=== PATIENT | male | born 1970 | race African-American/Black ===

== ENCOUNTER 2017-08-25 06:54 | Day surgery (SDC) | payer OTHER ==
[2017-08-24 08:48] VITALS: BMI 34.7
[~2017-08-25 06:54] MED LIST: Cyclopentolate 1% Opth Drop 2 ML BOT FS SCH; EPINEPHrine 0.3 MG, Dextrose 50% 3 ML in Ophthalmic Irrigation Solution 500 ML FS SCH; Phenylephrine HCl 2.5% Ophth Soln 5 ML BOT FS SCH
[2017-08-25] MEDS ORDERED: Cyclopentolate 1% Opth Drop 2 ML BOT ONE (07:27)
[2017-08-25] MEDS ORDERED: Phenylephrine HCl 2.5% Ophth Soln 5 ML BOT ONE (07:27)
[2017-08-25] MEDS ORDERED: Promethazine HCl 25 MG/ML VIAL ONE (09:23)
[2017-08-25] MEDS ORDERED: PHENYLEPHRINE-NS 100 MCG/ML 10 ML SYRINGE ONE ×2 (09:23→09:58)
[2017-08-25] MEDS ORDERED: Ondansetron HCl/PF 4 MG/2 ML Vial ONE (09:23)
[2017-08-25] MEDS ORDERED: Diprivan 20 ML ONE (09:23)
[2017-08-25] MEDS ORDERED: Phenylephrine 10 MG/NS 250 ML 250 ML ONE (10:40)
--- NOTE | 2017-08-25 11:46 | OP ---
DATE OF PROCEDURE: 08/25/2017 PREOPERATIVE DIAGNOSIS: Tractional retinal detachment, left eye. POSTOPERATIVE DIAGNOSIS: Tractional retinal detachment, left eye. PROCEDURE PERFORMED: Pars plana vitrectomy, tractional retinal detachment repair, left eye. SURGEON: Dr. Beto Moran. ANESTHESIA: General endotracheal anesthesia. COMPLICATIONS: None. PROCEDURE IN DETAIL: The patient was identified in the preoperative holding area. Appropriate info rmed consent for the planned surgical procedure on the left eye had been obtained. The patient was transported to the operative suite where appropriate cardiopulmonary monitoring was established. A general endotracheal anesthesia was initiated. Local anesthesia was obtained with a retrobulbar blo ck. The patient was prepped and draped in the usual sterile manner for ophthalmic surgery on the le ft eye. Lid speculum was placed in the left eye. The 25-gauge trocars were placed in conjunctiva a nd sclera supratemporally, inferotemporally, and supranasally. Infusion line was placed inferotempo rally. Light pipe and vitreous cutter were inserted into the eye. Core of vitrectomy was performed . Tractional retinal detachment was identified with multiple areas of proliferans adherent to the r etina. These were dissected from the retinal surface and tractional retinal detachment was relieved , several holes were found underneath the tractional retinal detachment. The retina was drained wit h some persistence of a funnel detachment over the nerve. Laser was placed into all non-macular are as of the retina. Complete air fluid exchange was performed with 10 minutes being allowed for fluid to drain posteriorly. Silicone oil was infused into the eye. Trocars were removed and sclerotomy was sutured closed. Retrobulbar Kenalog and subconjunctival Ancef were placed, antibiotic ointment were placed, and the eye was patched and shielded. The patient was taken to the postoperative recov jordin unit in good condition having suffered no immediate perioperative complications. DISCHARGE INSTRUCTIONS: Patient was instructed to keep patch and shield on, avoid lifting or bendin g, and follow up in the morning with Dr. Beto Moran.
== END 2017-08-25 12:50 | disposition home or self-care (01) ==
LOC: SDC 06:54
PROVIDERS: ATTEND Ophthalmology Retina Specialist
PROC: 08T53ZZ Resection of Left Vitreous, Percutaneous Approach (ICD-10-PCS; principal; 2017-08-25)
DX: H33.42 Traction detachment of retina, left eye (principal); I10 Essential (primary) hypertension; E11.9 Type 2 diabetes mellitus without complications; F32.9 Major depressive disorder, single episode, unspecified; E78.5 Hyperlipidemia, unspecified; G40.909 Epilepsy, unspecified, not intractable, without status epilepticus; F90.9 Attention-deficit hyperactivity disorder, unspecified type; R29.818 Other symptoms and signs involving the nervous system; Z79.84 Long term (current) use of oral hypoglycemic drugs; Z79.02 Long term (current) use of antithrombotics/antiplatelets; Z79.82 Long term (current) use of aspirin; Z79.899 Other long term (current) drug therapy; Z98.890 Other specified postprocedural states
CPT/HCPCS: 36416; C1814; J0171; J2405; J2550; J2704